=== PATIENT | male | born 1950 | race Caucasian/White ===

== ENCOUNTER 2021-06-03 17:00 | Outpatient (CLI) | payer MEDICARE, OTHER | END 2021-06-03 17:01 | disposition home or self-care (01) | LOC: SLEEPLAB 17:00 | PROVIDERS: ATTEND Family Medicine | DX: G47.33 Obstructive sleep apnea (adult) (pediatric) (principal); R53.83 Other fatigue; R35.1 Nocturia; G47.00 Insomnia, unspecified; G47.31 Primary central sleep apnea | CPT/HCPCS: 95806 ==

== ENCOUNTER 2021-07-17 19:30 | Outpatient (CLI) | payer MEDICARE, OTHER | END 2021-07-17 19:31 | disposition home or self-care (01) | LOC: SLEEPLAB 19:30 | PROVIDERS: ATTEND Family Medicine | DX: G47.33 Obstructive sleep apnea (adult) (pediatric) (principal); R53.83 Other fatigue | CPT/HCPCS: 95811 ==

== ENCOUNTER 2024-07-22 13:05 | Outpatient (CLI) | payer MEDICARE, OTHER | END 2024-07-22 13:06 | disposition home or self-care (01) | LOC: RAD 13:05 | PROVIDERS: ATTEND Nurse Practitioner Family | DX: R05.1 Acute cough (principal) | CPT/HCPCS: 71046 ==